=== PATIENT | female | born 1980 | race Caucasian/White ===

== ENCOUNTER 2018-06-17 06:39 | Inpatient (IN) | payer MEDICAID ==
[2018-06-17] MEDS ORDERED: AMPICILLIN 2 GM/NS (PMX) 100 ML IV (08:00)
[2018-06-17] MEDS ORDERED: OXYTOCIN 30 UNITS/LR 500 ML IV ×2 (08:00→13:00)
[2018-06-17] MEDS ORDERED: CARBOPROST 250 MCG INJ IM ×2 (08:00→13:00)
[2018-06-17] MEDS ORDERED: MISOPROSTOL 200 MCG TAB PR ×2 (08:00→13:00)
[2018-06-17] MEDS ORDERED: METHYLERGONOVINE 0.2 MG INJ IM ×2 (08:00→13:00)
[2018-06-17 08:09] LABS: ADD MAN DIFF? NO
[2018-06-17 08:18] LABS: BASOPHIL # 0.1 10^3/ul (0.0-0.1); BASOPHILS % 0.6 % (0.0-2.0); EOSINOPHILS # 0.2 10^3/ul (0.0-0.5); EOSINOPHILS % 1.9 % (0.0-7.0); HEMATOCRIT 36.6 % (37.0-47.0); HEMOGLOBIN 12.1 g/dl (12.0-16.0); LYMPHOCYTES % 17.5 % (15.0-51.0); MEAN CORPUSCULAR HGB CONC 33.1 g/dl (32.0-37.0); MEAN CORPUSCULAR VOLUME 87.8 fl (82.0-101.0); MEAN PLATELET VOLUME 9.5 fl (7.4-10.4); MONOCYTE # 0.9 10^3/ul (0.3-0.9); MONOCYTES % 8.2 % (0.0-11.0); NEUTROPHIL # 7.9 10^3/ul (1.6-7.5); NEUTROPHILS % 69.8 % (39.0-77.0); PLATELET COUNT 334 10^3/UL (140-415); RED BLOOD COUNT 4.17 10^6/ul (4.20-5.40)
[2018-06-17 08:18] LABS: WHITE BLOOD COUNT 11.4 10^3/ul (4.8-10.8)
[2018-06-17 08:19] LABS: ADD UMIC YES; UR ASCORBIC ACID NEGATIVE (NEGATIVE); UR BILIRUBIN (Dip) NEGATIVE (NEGATIVE); UR BLOOD (Dip) NEGATIVE (NEGATIVE); UR CALCIUM OXALATE CRYSTAL MANY /HPF (NONE SEEN); UR CLARITY SLIGHTLY CLOUDY (CLEAR); UR COLOR YELLOW (YELLOW); UR GLUCOSE (Dip) NEGATIVE (NEGATIVE); UR KETONES (Dip) TRACE mg/dL (NEGATIVE); UR LEUKOCYTE ESTERASE (Dip) NEGATIVE Leu/ul (NEGATIVE); UR MUCUS FEW /HPF (NONE SEEN); UR NITRITE (Dip) NEGATIVE (NEGATIVE); UR RBC 1 /HPF (0-5); UR SQUAMOUS EPITHELIAL CELL FEW /HPF (FEW); UR TOTAL PROTEIN (Dip) 1+ mg/dl (NEGATIVE); UR UROBILINOGEN (Dip) NEGATIVE (NEGATIVE); UR WBC 1 /HPF (0-5)
[2018-06-17 08:37] LABS: PROTIME 12.3 Sec (11.9-14.9)
[2018-06-17 08:38] LABS: PARTIAL THROMBOPLASTIN TIME 27.5 Sec (23.0-35.0)
[2018-06-17 08:39] LABS: ALANINE AMINOTRANSFERASE 9 IU/L (13-69); ALBUMIN 3.7 g/dl (3.3-4.9); ALBUMIN/GLOBULIN RATIO 1.27; ALKALINE PHOSPHATASE 130 IU/L (42-121); ANION GAP 9 (5-13); ASPARTATE AMINO TRANSFERASE 12 IU/L (15-46); BILIRUBIN,INDIRECT 0.4 mg/dl (0-1.1); BILIRUBIN,TOTAL 0.4 mg/dl (0.2-1.3); BLOOD UREA NITROGEN 6 mg/dl (7-20); CALCIUM 9.3 mg/dl (8.4-10.2); CARBON DIOXIDE 19 mmol/L (21-31); CHLORIDE 110 mmol/L (97-110); Estimated GFR > 60 mL/min (>60); GLUCOSE 85 mg/dl (70-220); POTASSIUM 3.9 mmol/L (3.5-5.1); SODIUM 138 mmol/L (135-144); TOTAL PROTEIN 6.6 g/dl (6.1-8.1); URIC ACID 4.6 mg/dl (3.1-7.9)
[2018-06-17] MEDS: LACTATED RINGER'S 1,000 ML IV ×3 (08:54→12:39)
[2018-06-17] MEDS ORDERED: OXYTOCIN 30 UNITS/LR 500 ML BAG IV (09:00)
[2018-06-17] MEDS ORDERED: FENTAnyl 50 MCG/ML VIAL (09:07)
[2018-06-17] MEDS ORDERED: morphine SULFATE/PF (10 MG/10 ML) INJ (09:07)
[2018-06-17 09:08] LABS: HEPATITIS B SURFACE ANTIGEN NEGATIVE (NEGATIVE)
[2018-06-17] MEDS: CEFAZOLIN 2 GM/50 ML (PMX) 50 ML IVPB (09:30)
[2018-06-17] MEDS ORDERED: DEXAMETHASONE 4 MG/ML 1 ML INJ (09:44)
[2018-06-17] MEDS ORDERED: ONDANSETRON 4 MG INJ (09:44)
[2018-06-17] MEDS ORDERED: PHENYLephrine (100 MCG/ML) 10ML SYG (09:45)
[2018-06-17] MEDS ORDERED: ZOLPIDEM 5 MG TAB PO (10:30)
[2018-06-17] MEDS ORDERED: HYDROmorphONE 0.5 MG/0.5 ML SYG IV ×2 (10:30)
[2018-06-17] MEDS ORDERED: NALOXONE (0.4 MG/ML) INJ IV (10:30)
[2018-06-17] MEDS ORDERED: ONDANSETRON 4 MG INJ IV (10:30)
[2018-06-17] MEDS: OXYTOCIN 30 UNITS/LR 500 ML IV ×2 (10:55→16:32)
[2018-06-17] MEDS: DIPHENHYDRAMINE 50 MG INJ IV (11:54)
[2018-06-17] MEDS ORDERED: HYDROCODONE/APAP (5/325) TAB PO (13:00)
[2018-06-17] MEDS ORDERED: NACL 0.9% 3 ML SYG IV (13:00)
[2018-06-17] MEDS ORDERED: NA PHOSPHATE/BIPHOS 133 ML ENEMA PR (13:00)
[2018-06-17] MEDS: IBUPROFEN 800 MG TAB PO ×2 (13:16→22:00)
[2018-06-17 16:32] LABS: RAPID PLASMA REAGIN NONREACTIVE (NR)
[2018-06-18] MEDS: LACTATED RINGER'S 1,000 ML IV ×3 (02:25→16:25)
[2018-06-18] MEDS: IBUPROFEN 800 MG TAB PO ×3 (06:00→22:00)
[2018-06-18] MEDS: LANOLIN HPA 1 PKT TOP (08:18)
[2018-06-18] MEDS: KETOROLAC 30 MG INJ IV (08:18)
[2018-06-18 08:48] LABS: ADD MAN DIFF? NO
[2018-06-18 08:53] LABS: WHITE BLOOD COUNT 13.4 10^3/ul (4.8-10.8)
[2018-06-18 08:53] LABS: BASOPHIL # 0.1 10^3/ul (0.0-0.1); BASOPHILS % 0.4 % (0.0-2.0); EOSINOPHILS # 0.1 10^3/ul (0.0-0.5); EOSINOPHILS % 0.7 % (0.0-7.0); HEMATOCRIT 32.9 % (37.0-47.0); HEMOGLOBIN 10.8 g/dl (12.0-16.0); LYMPHOCYTES # 2.3 10^3/ul (0.8-2.9); LYMPHOCYTES % 17.4 % (15.0-51.0); MEAN CORPUSCULAR HEMOGLOBIN 28.6 pg (29.0-33.0); MEAN CORPUSCULAR HGB CONC 32.8 g/dl (32.0-37.0); MEAN CORPUSCULAR VOLUME 87.3 fl (82.0-101.0); MEAN PLATELET VOLUME 9.7 fl (7.4-10.4); MONOCYTES % 7.7 % (0.0-11.0); NEUTROPHIL # 9.7 10^3/ul (1.6-7.5); NEUTROPHILS % 72.6 % (39.0-77.0); PLATELET COUNT 303 10^3/UL (140-415); RED BLOOD COUNT 3.77 10^6/ul (4.20-5.40); RED CELL DISTRIBUTION WIDTH 14.8 % (11.5-14.5)
[2018-06-19] MEDS: LACTATED RINGER'S 1,000 ML IV ×2 (01:30→09:30)
[2018-06-19] MEDS: IBUPROFEN 800 MG TAB PO ×2 (05:43→14:11)
[2018-06-19] MEDS: MEASLES,MUMPS,RUBELLA VACCINE INJ SC* (14:55)
[2018-06-19] MEDS: DIPHTH/TET/ACEL PERTUSS (ADULT) 0.5 ML VIAL IM* (15:04)
[2018-06-20] MEDS ORDERED: DIPHTH/TET/ACEL PERTUSS (ADULT) 0.5 ML VIAL IM* (09:00)
== END 2018-06-19 16:06 | disposition home or self-care (01) | DRG 788 ==
LOC: L-D 06:39 → PP1 12:50
PROVIDERS: Obstetrics & Gynecology
PROC: 10D00Z1 Extraction of Products of Conception, Low, Open Approach (ICD-10-PCS; principal; 2018-06-17 09:00)
DX: O65.5 Obstructed labor due to abnormality of maternal pelvic organs (principal); O34.211 Maternal care for low transverse scar from previous cesarean delivery; O13.4 Gestational [pregnancy-induced] hypertension without significant proteinuria, complicating childbirth; Z3A.38 38 weeks gestation of pregnancy; Z37.0 Single live birth
CPT/HCPCS: 80053; 81001; 84560; 85025; 85610; 85730; 86592; 86850; 86900; 86901; 87340; 88307; 90715; 99464